=== PATIENT | male | born 2000 | race Hispanic/Latino ===

== ENCOUNTER 2021-11-18 14:53 | Outpatient (CLI) | payer OTHER | END 2021-11-18 14:54 | disposition home or self-care (01) | LOC: CTENTCT 14:53 | PROVIDERS: ATTEND Otolaryngology Plastic Surgery within the Head & Neck | DX: J32.8 Other chronic sinusitis (principal) | CPT/HCPCS: 70486 ==

== ENCOUNTER 2022-01-21 06:22 | Day surgery (SDC) | payer OTHER ==
[2022-01-15 11:25] VITALS: BMI 25.0
[2022-01-21] MEDS ORDERED: Lidocaine 4% Topical Sol 50 ML BOT ONE (07:08)
[2022-01-21] MEDS ORDERED: AFRIN NASAL MIST 15 ML BOT ONE ×2 (07:12→08:09)
[2022-01-21] MEDS ORDERED: Midazolam HCl 2 mg/2 ml Vial ONE (08:02)
[2022-01-21] MEDS ORDERED: Lidocaine 1% w/Epinephrine 1:100K 20 ML VIAL ONE (08:09)
[2022-01-21] MEDS ORDERED: Bacitracin Zinc Ointment 30 gm TUBE ONE (08:09)
[2022-01-21] MEDS ORDERED: Fentanyl 100 MCG/2 ML VIAL ONE ×2 (08:17→10:13)
[2022-01-21] MEDS ORDERED: Dexmedetomidine 200 MCG/2 ML VIAL ONE (08:17)
[2022-01-21] MEDS ORDERED: PROPOFOL 200 MG/20 ML VIAL ONE (08:25)
[2022-01-21] MEDS ORDERED: Lidocaine 1% PF 5 ML VIAL ONE (08:25)
[2022-01-21] MEDS ORDERED: Dexamethasone 20 MG/5 ML VIAL ONE (08:25)
[2022-01-21] MEDS ORDERED: Ondansetron PF 4 MG/2 ML Vial ONE (08:25)
[2022-01-21] MEDS ORDERED: HYDROcodone/Acetaminophen 5/325 mg Tablet ONE (10:48)
[2022-01-21] MEDS ORDERED: hydrALAZINE 20 MG/ML VIAL ONE (11:38)
== END 2022-01-21 12:10 | disposition home or self-care (01) ==
LOC: SDC 06:22
PROVIDERS: ATTEND Otolaryngology Plastic Surgery within the Head & Neck
PROC: 09TV8ZZ Resection of Left Ethmoid Sinus, Via Natural or Artificial Opening Endoscopic (ICD-10-PCS; principal; 2022-01-21)
PROC: 09SM0ZZ Reposition Nasal Septum, Open Approach (ICD-10-PCS; principal; 2022-01-21)
PROC: 09TL0ZZ Resection of Nasal Turbinate, Open Approach (ICD-10-PCS; principal; 2022-01-21)
PROC: 099R8ZZ Drainage of Left Maxillary Sinus, Via Natural or Artificial Opening Endoscopic (ICD-10-PCS; principal; 2022-01-21)
PROC: 099T8ZZ Drainage of Left Frontal Sinus, Via Natural or Artificial Opening Endoscopic (ICD-10-PCS; principal; 2022-01-21)
PROC: 09TU8ZZ Resection of Right Ethmoid Sinus, Via Natural or Artificial Opening Endoscopic (ICD-10-PCS; principal; 2022-01-21)
PROC: 099Q8ZZ Drainage of Right Maxillary Sinus, Via Natural or Artificial Opening Endoscopic (ICD-10-PCS; principal; 2022-01-21)
PROC: 099S8ZZ Drainage of Right Frontal Sinus, Via Natural or Artificial Opening Endoscopic (ICD-10-PCS; principal; 2022-01-21)
DX: J32.9 Chronic sinusitis, unspecified (principal); J34.2 Deviated nasal septum; J34.3 Hypertrophy of nasal turbinates; J34.89 Other specified disorders of nose and nasal sinuses; J45.909 Unspecified asthma, uncomplicated
CPT/HCPCS: J0360; J1100; J2250; J2405; J2704; J3010